=== PATIENT | female | born 1970 | race Caucasian/White ===

== ENCOUNTER 2023-02-08 18:27 | Emergency (ER) | payer OTHER ==
[~2023-02-08] VITALS: Ht 170.2 cm; Wt 86.6 kg
[2023-02-08] MEDS ORDERED: PHEN-935 PO (18:37)
[2023-02-08] MEDS ORDERED: ONDANSETRON 4MG ORAL DISINTEGRATING TAB PO ONE (23:35)
[2023-02-08] MEDS ORDERED: ACETAMINOPHEN TAB 650MG DOSE (2X325MG) PO ONE (23:35)
[2023-02-09] MEDS ORDERED: ONDA4TAB6 PO (00:45)
[2023-02-09] MEDS ORDERED: BENZ200C70 PO (00:45)
[2023-02-09 01:03] VITALS: BP 141/78; TEMP 100.7; O2SAT 98
== END 2023-02-09 01:13 | disposition home or self-care (01) ==
LOC: M ED 18:27
DX: J09.X2 Influenza due to identified novel influenza A virus with other respiratory manifestations (principal); Z20.822 Contact with and (suspected) exposure to COVID-19